=== PATIENT | male | born 1960 | race Two or more races ===

== ENCOUNTER 2023-11-05 09:33 | Outpatient (REF) | payer OTHER, SELFPAY ==
--- NOTE | ~2023-11-05 | US_ITS ---
EXAMINATION: US EXTRACRANIAL CAROTID DUPLEX, BILATERAL CLINICAL INFORMATION: Central retinal vein occlusion COMPARISON: None available. TECHNIQUE: Real-time ultrasound and Doppler techniques (integrating B-mode 2-D vascular images, Doppler spectral analysis and color-flow Doppler imaging) were utilized to interrogate the extracranial carotid arteries, the vertebral arteries and proximal subclavian arteries bilaterally. The degree of stenosis is determined by criteria similar to NASCET. FINDINGS: Right Side: 1. There is mild atherosclerotic plaque seen in the bifurcation/proximal ICA region. 2. The common carotid artery PSV proximally is 118 cm/s and distally 91.5 cm/s. 3. The proximal internal carotid artery velocities are 82.8 cm/s systolic and 33.9 cm/s diastolic. 4. The proximal external carotid artery PSV is 68.9 cm/s. 5. The vertebral artery shows antegrade flow. 6. The subclavian artery waveforms are normal. Left Side: 1. There is mild atherosclerotic plaque seen in the bifurcation/proximal ICA region. 2. The common carotid artery PSV proximally is 119 cm/s and distally 89.1 cm/s. 3. The proximal internal carotid artery velocities are 60.3 cm/s systolic and 28.4 cm/s diastolic. 4. The proximal external carotid artery PSV is 97.9 cm/s. 5. The vertebral artery shows antegrade flow. 6. The subclavian artery waveforms are normal. US/US carotid duplex BI IMPRESSION: 1. RIGHT: Minimal, non-hemodynamically significant stenosis of the proximal right internal carotid artery corresponding to a 0-49% stenosis by velocity criteria. 2. LEFT: Minimal, non-hemodynamically significant stenosis of the proximal left internal carotid artery corresponding to a 0-49% stenosis by velocity criteria.
== END 2023-11-05 09:34 | disposition home or self-care (01) ==
LOC: HO.UMASIMG 09:33
PROVIDERS: Visit Provider Family Medicine
DX: I65.23 Occlusion and stenosis of bilateral carotid arteries (principal); H34.8192 Central retinal vein occlusion, unspecified eye, stable
CPT/HCPCS: 93880

== ENCOUNTER 2024-06-16 10:49 | Outpatient (REF) | payer OTHER, SELFPAY ==
--- NOTE | ~2024-06-16 | US_ITS ---
EXAMINATION: US RETROPERITONEAL COMPLETE (RENAL) CLINICAL INFORMATION: Left flank pain. COMPARISON: None available. TECHNIQUE: Real-time imaging of the kidneys and bladder. FINDINGS: RIGHT KIDNEY: 1.5 x 6.6 x 4.8 cm (SAG x AP x TRV). The kidney is normal in size, contour, and echogenicity. Renal cortical thickness is normal. No calculi or focal parenchymal lesions. No hydronephrosis. LEFT KIDNEY: 10 x 5.6 x 4.9 cm (SAG x AP x TRV). The kidney is normal in size, contour, and echogenicity. Renal cortical thickness is normal. No calculi or focal parenchymal lesions. No hydronephrosis. BLADDER: Well distended and normal. Bilateral ureteral jets are demonstrated. Prevoid bladder volume is 530 mL. Postvoid bladder volume is 22 mL. US/US retroperitoneal comp IMPRESSION: 1. No hydronephrosis or nephrolithiasis. 2. Sonographically unremarkable urinary bladder. Postvoid bladder volume of 22 mL. Electronically signed by: Howard Schafer MD 06/16/2024 07:54 PM EST
== END 2024-06-16 10:50 | disposition home or self-care (01) ==
LOC: HO.UMASIMG 10:49
PROVIDERS: Visit Provider Family Medicine
DX: R10.9 Unspecified abdominal pain (principal)
CPT/HCPCS: 76770

== ENCOUNTER 2024-10-27 07:01 | Outpatient (REF) | payer OTHER, SELFPAY ==
--- NOTE | ~2024-10-27 | US_ITS ---
EXAMINATION: BILATERAL CAROTID ULTRASOUND WITH DOPPLER HISTORY: Retinal vein occlusion, stenosis carotid arteries COMPARISON: Comparison is made with the prior examination dated 11/05/2023. TECHNIQUE: Real time and Color and Spectral doppler ultrasonography of the carotid and vertebral arteries was performed in multiple planes. FINDINGS: No significant plaque is identified. VERTEBRAL FLOW DIRECTION: Antegrade bilaterally. PEAK SYSTOLIC VELOCITIES (in cm/sec): RIGHT: CCA: Prox: 119 Dist: 109 ICA: Prox: 57.9 Mid: 73.4 Dist: 76.3 ICA/CCA Ratio: 0.64 ECA: 119 Peak ICA EDV: 29.8 LEFT: CCA: Prox: 136 Dist: 107 ICA: Prox: 75.4 Mid: 57.8 Dist: 60.1 ICA/CCA Ratio: 0.55 ECA: 65.7 Peak ICA EDV: 32.2 US/US carotid duplex BI IMPRESSION: Findings consistent with 0-49% stenosis of the bilateral internal carotid arteries. Electronically signed by: Cecli Kinsey MD 10/28/2024 07:39 AM EDT
== END 2024-10-27 07:02 | disposition home or self-care (01) ==
LOC: HO.UMASIMG 07:01
PROVIDERS: Visit Provider Family Medicine
DX: I65.23 Occlusion and stenosis of bilateral carotid arteries (principal); I10 Essential (primary) hypertension; E78.5 Hyperlipidemia, unspecified
CPT/HCPCS: 93880

== ENCOUNTER → 2024-10-27 14:00 | Outpatient (BNV) | payer OTHER, SELFPAY | PROVIDERS: Visit Provider Radiology Diagnostic Radiology | DX: I65.23 Occlusion and stenosis of bilateral carotid arteries (principal) | CPT/HCPCS: 93880 ==